=== PATIENT | male | born 1950 | race Caucasian/White ===

== ENCOUNTER → 2017-05-14 | Outpatient (CLI) | payer MEDICARE, BC ==
[~2017-05-14] MED LIST: DOBUTamine DRIP for NUC MED 500 MG in DEXTROSE/WATER 1 250ML.BAG IV ONE
--- NOTE | 2017-05-14 11:27 | P.STRESS ---
- Stress Test Note Stress Test Results/Findings: Exam Performed: dobutamine stress echo Exam Date: 05/14/17 Height: 5 ft 4 in Weight: 104.326 kg Protocol: Dobutamine Stress Echo Stage: 111 Duration of Exercise: 11.22 Resting Heart Rate: 65 Resting Blood Pressure: 129/67 Maximum Achieved Heart Rate: 130 Maximum Achieved Blood Pressure: 170/56 85% PMHR: 130 100% PMHR: 153 METS: 1.0 Technologist Comment: Stress Test Results/Findings: Baseline EKG shows normal sinus rhythm. Patient was given intravenous dobutamine for a period of 11 minutes as per protocol achieving 85% of predicted maximal heart rate without chest painat peak dobutamine infusion there was [address] segment depression noted in the inferolateral leads Baseline echo shows normal left ventricular size wall motion and systolic function Post dobutamine infusion there is normal hyperdynamic response of all the segments of myocardium Conclusions: Abnormal stress test by EKG criteria negative dobutamine echo
--- NOTE | 2017-05-14 14:09 | EST ---
Stress Test Results/Findings: Exam Performed: dobutamine stress echo Exam Date: 05/14/17 Height: 5 ft 4 in Weight: 104.326 kg Protocol: Dobutamine Stress Echo Stage: 111 Duration of Exercise: 11.22 Resting Heart Rate: 65 Resting Blood Pressure: 129/67 Maximum Achieved Heart Rate: 130 Maximum Achieved Blood Pressure: 170/56 85% PMHR: 130 100% PMHR: 153 METS: 1.0 Technologist Comment: Stress Test Results/Findings: Baseline EKG shows normal sinus rhythm. Patient was given intravenous dobutamine for a period of 11 minutes as per protocol achieving 85% of predicted maximal heart rate without chest pain at peak dobutamine infusion there was [address] segment depression noted in the inferolateral leads Baseline echo shows normal left ventricular size wall motion and systolic function Post dobutamine infusion there is normal hyperdynamic response of all the segments of myocardium Conclusions: Abnormal stress test by EKG criteria negative dobutamine echo MTDD
== END | disposition home or self-care (01) ==
LOC: RADNMMAIN 09:37
PROVIDERS: ATTEND Family Medicine
DX: R94.39 Abnormal result of other cardiovascular function study (principal); R07.9 Chest pain, unspecified
CPT/HCPCS: 93017; 93350; J1250

== ENCOUNTER → 2019-05-28 | Outpatient (CLI) | payer MEDICARE, BC ==
--- NOTE | 2019-05-28 11:06 | US ---
EXAMINATION TYPE: US duplex aorta DATE OF EXAM: 05/28/2019 COMPARISON: NONE CLINICAL HISTORY: Z13.6 SCREENING FOR CARDIOVASCULAR DISEASE. Screening for cardiovascular disease. EXAM MEASUREMENTS: Abdominal Aorta: Proximal: 2.1 x 1.8 cm Mid: 1.7 x1.5 cm Distal: .9 x 1.2 cm Bifurcation: 1.1 cm 1.1 cm Grayscale, color Doppler, spectral Doppler imaging performed of the aorta IMPRESSION: Aorta is not enlarged.
== END | disposition home or self-care (01) ==
LOC: RADUSWWP 09:16
PROVIDERS: ATTEND Family Medicine
DX: Z13.6 Encounter for screening for cardiovascular disorders (principal)
CPT/HCPCS: 93979

== ENCOUNTER 2019-05-30 15:50 | Inpatient (IN) | payer MEDICARE, BC ==
[2019-05-30] MEDS ORDERED: ASPIRIN 81 MG PO STA (16:23)
[2019-05-30] MEDS ORDERED: NITROGLYCERIN SL TABS 0.4 MG TAB SUBLINGUAL STA (16:23)
[2019-05-30] MEDS ORDERED: IPRATROPIUM-ALBUTEROL 3 ML NEB INHALATION STA (16:24)
[2019-05-30 16:44] LABS: Basophils % (A) 0 %; Eosinophils # (A) 0.1 k/uL (0-0.7); Eosinophils % (A) 1 %; HCT 47.5 % (39.0-53.0); HGB 16.2 gm/dL (13.0-17.5); Lymphocytes # (A) 1.4 k/uL (1.0-4.8); Lymphocytes % (A) 12 %; MCH 30.4 pg (25.0-35.0); MCHC 34.2 g/dL (31.0-37.0); MCV 88.9 fL (80.0-100.0); Mean Platelet Volume 9.2; Monocytes # (A) 0.4 k/uL (0-1.0); Monocytes % (A) 3 %; Neutrophils # (A) 9.7 k/uL (1.3-7.7); Neutrophils % (A) 82 %; Platelet Count 273 k/uL (150-450); RBC 5.34 m/uL (4.30-5.90); RDW 12.7 % (11.5-15.5); WBC 11.8 k/uL (3.8-10.6)
[2019-05-30 16:56] LABS: D-Dimer 0.49 mg/L FEU (<0.60); Partial Thromboplastin Time 22.1 sec (22.0-30.0); Prothrombin Time 10.3 sec (9.0-12.0)
[2019-05-30 17:10] LABS: Albumin 5.1 g/dL (3.5-5.0); Calcium 9.9 mg/dL (8.4-10.2); Magnesium 1.9 mg/dL (1.6-2.3); Total Bilirubin 1.6 mg/dL (0.2-1.3); Total Protein 9.5 g/dL (6.3-8.2)
--- NOTE | 2019-05-30 17:14 | XR ---
EXAMINATION TYPE: XR chest 2V DATE OF EXAM: 05/30/2019 COMPARISON: NONE HISTORY: Chest pain TECHNIQUE: Frontal and lateral views of the chest are obtained. FINDINGS: There is no heart failure nor confluent pneumonic infiltrate. Costophrenic angles are sara r. Bony thorax is intact. IMPRESSION: No active cardiopulmonary disease. Normal heart.
[2019-05-30 17:15] LABS: Potassium 4.7 mmol/L (3.5-5.1)
--- NOTE | 2019-05-30 19:29 | ED ---
Chest Pain HPI - General Chief Complaint: Chest Pain Stated Complaint: Allergic Reaction Source: patient Mode of arrival: wheelchair Limitations: no limitations - History of Present Illness Initial Comments: Patient is a 68-year-old male who presents to the emergency department with reported shortness of breath and chest pressure. He reports that his symptoms started earlier this morning. At 8 AM he went for a walk with his . He states he did cut his walk short as he was experiencing exertional shortness of breath. He states he went home and continue to feel symptomatic. He thought he may be having ALLERGIC reaction to medication he started. He states he began taking Flomax last night. He admits to heaviness in his chest. He is also complaining of tightness in his jaw. He denies chest pain. No ripping or tearing sensation to his back. He denies oral swelling with a sensation that his airways being cut off. No hives noted. He admits to associated diaphoresis and nausea. No vomiting. He denies any abdominal pain or changes in bowel or bladder habits. He does report to muscle cramping in his right lower extremity. Denies any lower extremity weakness. No unilateral numbness or weakness, syncope, presyncope. He denies a history of DVTs or PEs. No lower extremity edema, recent travel or history of blood clotting disorders. He has never had a cardiac cath. Last stress test was performed in 2016. There are no other alleviating, precipitating or modifying factors - Related Data Home Medications Medication Instructions Recorded Confirmed Aspirin [Howell Aspirin EC] 81 mg PO DAILY 05/30/19 05/30/19 Losartan/Hydrochlorothiazide 1 tab PO HS 05/30/19 05/30/19 [Hyzaar 100-25 Tablet] Montelukast [Singulair] 10 mg PO HS 05/30/19 05/30/19 Multivitamin/Iron/Folic Acid 1 tab PO DAILY 05/30/19 05/30/19 [Centrum Complete Multivit Tab] Omeprazole [PriLOSEC] 20 mg PO DAILY 05/30/19 05/30/19 Simvastatin [Zocor] 40 mg PO HS 05/30/19 05/30/19 Tamsulosin [Flomax] 0.4 mg PO DAILY 05/30/19 05/30/19 Allergies Allergy/AdvReac Type Severity Reaction Status Date / Time KAYE Inhibitors Allergy Rash/Hives Verified 05/30/19 20:13 amoxicillin [From Augmentin] Allergy Rash/Hives Verified 05/30/19 20:13 clavulanic acid Allergy Rash/Hives Verified 05/30/19 20:13 [From Augmentin] Review of Systems ROS Statement: Those systems with pertinent positive or pertinent negative responses have been documented in the HPI. ROS Other: All systems not noted in ROS Statement are negative. EKG Findings - EKG Comments: EKG Findings:: EKG demonstrates a sinus rhythm with a ventricular rate of 85. ME interval to 2. QRS 164. QTC of 521. There is a left bundle branch block present. There is no EKG available for comparison. It does not appear to meet sgarbossa criteria. Past Medical History Past Medical History: COPD, Hyperlipidemia, Hypertension, Prostate Disorder Past Surgical History: No Surgical Hx Reported Past Psychological History: No Psychological Hx Reported Smoking Status: Never smoker Past Alcohol Use History: None Reported, Rare Past Drug Use History: None Reported - Past Family History Father Family Medical History: CVA/TIA, Myocardial Infarction ([place]) Mother Family Medical History: CVA/TIA, Myocardial Infarction ([place]) Additional Family Medical History / Comment(s): Pacer General Exam Limitations: no limitations General appearance: alert, in no apparent distress Head exam: Present: atraumatic, normocephalic, normal inspection Eye exam: Present: normal appearance, PERRL, EOMI. Absent: scleral icterus, conjunctival injection, periorbital swelling ENT exam: Present: normal exam, mucous membranes moist Neck exam: Present: normal inspection. Absent: tenderness, meningismus, lymphadenopathy Respiratory exam: Present: normal lung sounds bilaterally. Absent: respiratory distress, wheezes, rales, rhonchi, stridor Cardiovascular Exam: Present: regular rate, normal rhythm, normal heart sounds. Absent: systolic murmur, diastolic murmur, rubs, gallop, clicks GI/Abdominal exam: Present: soft, normal bowel sounds. Absent: distended, tenderness, guarding, rebound, rigid Extremities exam: Present: normal inspection, full ROM, normal capillary refill. Absent: tenderness, pedal edema, joint swelling, calf tenderness Back exam: Present: normal inspection Neurological exam: Present: alert, oriented X3, CN II-XII intact Psychiatric exam: Present: normal affect, normal mood Skin exam: Present: warm, dry, intact, normal color. Absent: rash Course Vital Signs 05/30/19 05/30/19 05/30/19 15:53 16:30 17:03 Temperature 97 F L Pulse Rate 88 80 82 Pulse Rate [ Pulse Oximetery ] Respiratory 16 16 15 Rate Blood Pressure 162/83 160/88 113/74 Blood Pressure [Right Arm] O2 Sat by Pulse 99 97 96 Oximetry 05/30/19 05/30/19 05/30/19 17:21 17:30 17:33 Temperature Pulse Rate 75 80 75 Pulse Rate [ Pulse Oximetery ] Respiratory 17 Rate Blood Pressure 113/74 Blood Pressure [Right Arm] O2 Sat by Pulse 97 Oximetry 05/30/19 05/30/19 05/30/19 18:00 18:30 20:00 Temperature 97.5 F L Pulse Rate 81 86 Pulse Rate [ 68 Pulse Oximetery ] Respiratory 15 16 18 Rate Blood Pressure 123/76 121/73 Blood Pressure 158/71 [Right Arm] O2 Sat by Pulse 94 L 97 Oximetry 05/30/19 20:08 Temperature 98.1 F Pulse Rate 80 Pulse Rate [ Pulse Oximetery ] Respiratory 18 Rate Blood Pressure 123/77 Blood Pressure [Right Arm] O2 Sat by Pulse 97 Oximetry Chest Pain MDM - MDM The patient is probably placed in trauma bay 1. He is hooked up to continuous pulse ox and cardiac monitoring. Peripheral IV is established. A 12-lead EKG is performed which demonstrates a left bundle branch block. There are no Sgarbossa criteria. The patient is given 324 mg of chewable aspirin. He is also given a nitroglycerin tablet. Laboratory studies were conducted. The patient has a chest x-ray performed. I did send the EKG to Dr. Sifuentes as I am concerned with the new bundle branch block. The patient was reevaluated and states that his pain is much improved. He did remain in hemodynamically stable condition. Patient's first troponin is negative. I did discuss the diagnosis, differential and treatment options with the patient. I did recommend admission to the hospital in order to continue to trend the patient's troponins. The patient did agree to this. I did call discuss case with Dr. Reggie singh and he did accept admission of the patient. I will place cardiogenic consult. We'll continue trend the patient's troponins and Saw telemetry monitoring. Review the patient's records reveal that he had an abnormal stress test in 2017. The patient remained in stable condition was transported to the floor Disposition Clinical Impression: Chest pain, Acute respiratory insufficiency, Pre-syncope Disposition: ADMITTED IP TO THIS HOSP Condition: Stable Is patient prescribed a controlled substance at d/c from ED?: No Decision to Admit Reason: Admit from EC Decision Date: 05/30/19 Decision Time: 19:28
[2019-05-30] MEDS ORDERED: NALOXONE 0.4 MG/ML 1 ML VIAL IV PRN (19:32)
[2019-05-30] MEDS: LOSARTAN-HCTZ 50-12.5 MG 1 EACH TAB PO SCH (20:57)
[2019-05-30] MEDS: ATORVASTATIN 20 MG TAB PO SCH (20:57)
[2019-05-30] MEDS: ENOXAPARIN 40 MG/0.4 ML SYRINGE SQ SCH (20:58)
[2019-05-30] MEDS: MONTELUKAST 10 MG TAB PO SCH (20:58)
[2019-05-30] MEDS: SYMBICORT 80-4.5 MCG INHALER INHALATION SCH (23:27)
--- NOTE | 2019-05-30 23:51 | P.HPIM ---
History of Present Illness H&P Date: 05/30/19 Chief Complaint: Chest pain 68-year-old male with history of hyperlipidemia and hypertension Patient presented to the hospital due to sudden onset chest pain reported chest tightness rated as 5 out of 10 in severity around his chest radiating to the left jaw started all of a sudden while resting was associated with some dizziness and difficulty in breathing. More like heaviness on his chest was not precipitated by any activity or emotional stress he felt clammy and sweaty and nauseated no vomiting pain was off-and-on lasting 2-3 minutes each time every 1 hour having a new episode even while resting doing nothing. He had stress test done back in 2017 never had a heart cath before. No history of cardiac problems. Patient is able to do yard work and walks long distances with no limitations at his baseline. Currently feels comfortable denies any pain. He denies any recent traveling recent hospital stay or any recent surgeries. He denies any changes in his medications. He did not take anything for this pain or discomfort. But due to recurrent episodes he decided that he would come to the hospital for evaluation In the ED vital signs were normal troponins were negative EKG showed left bundle branch block seems to be new onset this was reviewed by cardiology contracts officer with no recommendations for any immediate intervention at this point. Patient was a dmitted for observation to rule out acute coronary syndrome Review of Systems Pertinent positives as noted in HPI. All other systems were reviewed and are negative Past Medical History Past Medical History: COPD, Hyperlipidemia, Hypertension, Prostate Disorder History of Any Multi-Drug Resistant Organisms: None Reported Past Surgical History: No Surgical Hx Reported Additional Past Surgical History / Comment(s): cataract surg B/L Past Anesthesia/Blood Transfusion Reactions: No Reported Reaction Smoking Status: Former smoker - Past Family History Father Family Medical History: CVA/TIA, Myocardial Infarction ([place]) Mother Family Medical History: CVA/TIA, Myocardial Infarction ([place]) Additional Family Medical History / Comment(s): Pacer Medications and Allergies Home Medications Medication Instructions Recorded Confirmed Type Aspirin [Erin Aspirin EC] 81 mg PO DAILY 05/30/19 05/30/19 History Losartan/Hydrochlorothiazide 1 tab PO HS 05/30/19 05/30/19 History [Hyzaar 100-25 Tablet] Montelukast [Singulair] 10 mg PO HS 05/30/19 05/30/19 History Multivitamin/Iron/Folic Acid 1 tab PO DAILY 05/30/19 05/30/19 History [Centrum Complete Multivit Tab] Omeprazole [PriLOSEC] 20 mg PO DAILY 05/30/19 05/30/19 History Simvastatin [Zocor] 40 mg PO HS 05/30/19 05/30/19 History Tamsulosin [Flomax] 0.4 mg PO DAILY 05/30/19 05/30/19 History Allergies Allergy/AdvReac Type Severity Reaction Status Date / Time KAYE Inhibitors Allergy Rash/Hives Verified 05/30/19 20:13 amoxicillin [From Augmentin] Allergy Rash/Hives Verified 05/30/19 20:13 clavulanic acid Allergy Rash/Hives Verified 05/30/19 20:13 [From Augmentin] Physical Exam Vitals: Vital Signs Temp Pulse Resp BP Pulse Ox 05/30/19 20:08 98.1 F 80 18 123/77 97 05/30/19 18:30 86 16 121/73 94 L 05/30/19 18:00 81 15 123/76 05/30/19 17:33 75 05/30/19 17:30 80 17 113/74 97 05/30/19 17:21 75 05/30/19 17:03 82 15 113/74 96 05/30/19 16:30 80 16 160/88 97 05/30/19 15:53 97 F L 88 16 162/83 99 Intake and Output 05/30/19 05/30/19 05/30/19 06:59 14:59 22:59 Other: Weight 104.326 kg Constitutional: No acute distress, conversant, pleasant Eyes: Anicteric sclerae, moist conjunctiva, no lid-lag Pupils equal round reactive to light ENMT: NC/AT Oropharynx clear, no erythema, or exudates Neck: Supple, FROM, no masses, or JVD No carotid bruits No thyromegaly Lungs: Clear to auscultation Clear to percussion Normal respiratory effort, no accessory muscle use Cardiovascular: Heart regular in rate and rhythm, No murmurs, gallops, or rubs No peripheral edema Abdominal: Soft Nontender, no guarding, rebound or rigidity Abdomen moving with respiration Normoactive bowel sounds No hepatomegaly, No splenomegaly No palpable mass No abdominal wall hernia noted Skin: Normal temperature, tone, texture, turgor No induration No subcutaneous nodules No rash, lesions No ulcers Extremities: No digital cyanosis No clubbing Pedal pulses intact and symmetrical Radial pulses intact and symmetrical No calf tenderness Psychiatric: Alert and oriented to person, place and time Appropriate affect fair judgement Neuro Muscles Strength 5/5 in all 4 extremities Sensation to light touch grossly present throughout Cranial nerves II-XII grossly intact No focal sensory deficits Lymphatics: no palpable cervical or supraclavicular , or inguinal lymph nodes Results CBC & Chem 7: 05/30/19 16:16 05/30/19 16:16 Labs: Abnormal Lab Results - Last 24 Hours (Table) 05/30/19 05/30/19 Range/Units 16:16 16:16 WBC 11.8 H (3.8-10.6) k/uL Neutrophils # 9.7 H (1.3-7.7) k/uL Carbon Dioxide 19 L (22-30) mmol/L Glucose 149 H (74-99) mg/dL Total Bilirubin 1.6 H (0.2-1.3) mg/dL Total Protein 9.5 H (6.3-8.2) g/dL Albumin 5.1 H (3.5-5.0) g/dL Thrombosis Risk Factor Assmnt - Choose All That Apply Each Risk Factor Represents 2 Points: Age 61-74 years Thrombosis Risk Factor Assessment Total Risk Factor Score: 2 Thrombosis Risk Factor Assessment Level: Low Risk Assessment and Plan Assessment: 68-year-old male with history of hypertension and hyperlipidemia admitted as observation with anticipated length of stay less than 48 hours due to atypical chest pain to rule out ACS Plan: Atypical chest pain EKG showing left bundle branch block no prior EKGs to compare, cardiology notified no recommendations for immediate intervention at this time Observation overnight Cardiac monitoring Trend cardiac enzymes Symptomatic control Cardiology consult Aspirin, statin Chronic conditions Hypertension COPD Hyperlipidemia Continue home meds DVT prophylaxis heparin subcu 3 times a day Surrogate decision-maker: CODE STATUS: Full code Discussed with: Patient, ER, RN Anticipated discharge: Less than [address]: Home A total of 60 minutes was spent on the care of this complex patient more than 50% of the time was spent in counseling and care coordination.
[2019-05-31 04:17] LABS: Basophils # (A) 0.1 k/uL (0-0.2); Basophils % (A) 1 %; Eosinophils # (A) 0.4 k/uL (0-0.7); Eosinophils % (A) 4 %; HCT 44.1 % (39.0-53.0); HGB 14.7 gm/dL (13.0-17.5); Lymphocytes # (A) 2.1 k/uL (1.0-4.8); Lymphocytes % (A) 18 %; MCH 29.9 pg (25.0-35.0); MCHC 33.3 g/dL (31.0-37.0); MCV 89.8 fL (80.0-100.0); Mean Platelet Volume 8.1; Monocytes # (A) 0.6 k/uL (0-1.0); Monocytes % (A) 6 %; Neutrophils # (A) 8.2 k/uL (1.3-7.7); Neutrophils % (A) 71 %; Platelet Count 266 k/uL (150-450); RBC 4.91 m/uL (4.30-5.90); RDW 12.9 % (11.5-15.5); WBC 11.6 k/uL (3.8-10.6)
[2019-05-31 04:27] LABS: Calcium 9.5 mg/dL (8.4-10.2); Potassium 3.9 mmol/L (3.5-5.1)
[2019-05-31] MEDS ORDERED: REGADENOSON 0.4 MG/5 ML SYRINGE IV ONE (06:34)
[2019-05-31] MEDS ORDERED: DOBUTamine DRIP for NUC MED 500 MG in DEXTROSE/WATER 1 250ML.BAG IV ONE (06:34)
[2019-05-31] MEDS ORDERED: CAFFEINE CITRATE 60 MG/3 ML VIAL IV PRN ×2 (06:34→09:13)
[2019-05-31] MEDS ORDERED: AMINOPHYLLINE 500 MG/20 ML VIAL IV PRN ×2 (06:34→09:13)
[2019-05-31] MEDS: SYMBICORT 80-4.5 MCG INHALER INHALATION SCH ×2 (07:51→19:11)
--- NOTE | 2019-05-31 08:12 | CONS ---
CONSULTATION This is a 68-year-old gentleman with a known history of hypertension and hypercholesterolemia. He also developed some benign prostatic hypertrophy and saw his primary care physician, Dr. Briseno. Apparently Dr. Brasher initiated him on Flomax 0.4 mg daily, which he took about 2 doses. A third dose was yesterday morning at about 7:30 or so and he went for a walk and felt discomfort and dizziness. It all started with feeling dizzy, lightheaded as if he is going to pass out type sensation, but did not quite pass out. He felt clammy, sweaty, then also had some pressure across the chest. He came in with these symptoms to the hospital. His troponin levels are normal. EKG reveals a left bundle which is a new left bundle compared to the previous EKG from 2017. In May of 2017, he had a dobutamine echo which did not reveal any ischemia. After arrival, he is asymptomatic, resting comfortably. Denies any chest pain, shortness of breath, or palpitations. His symptoms of pressure across the chest and dizziness have resolved. He is resting comfortably without symptoms. PAST MEDICAL HISTORY: Remarkable for hypertension, hyperlipidemia, benign prostatic hypertrophy, COPD. The patient is a past smoker. He quit more than 20 years ago. He has had some previous cataract surgery. MEDICATIONS: Medications at home include: Aspirin 81 mg daily, losartan HCTZ 100/25 one tablet daily, Singulair 10 mg daily, folic acid and iron supplements, Prilosec 20 mg daily, simvastatin 40 mg daily, Flomax 0.4 mg daily. ALLERGIES: There is question of some allergy to AUGMENTIN, CLAVULANIC ACID, and also KAYE INHIBITORS. PHYSICAL EXAMINATION: On examination, blood pressure is 118/70, pulse rate 64 per minute regular. HEENT: Unremarkable. Fundus was not examined by me. Neck is supple. There is no JVD. There is a soft right carotid bruit audible. Heart exam reveals S1, S2 without any significant rub, murmur or gallop. Lungs are clear. Abdomen is soft, nontender. Lower extremities reveal palpable pulses. No edema. Central nervous system is normal. EKG revealed a sinus mechanism, left bundle branch block pattern and PACs. IMPRESSION: 1. Chest pain syndrome, seems atypical. 2. History of dizziness, which seemed to be temporarily related to usage of Flomax. 3. Hypertension. 4. Hyperlipidemia. 5. A negative dobutamine echo 2 years ago. RECOMMENDATIONS: I am recommending that we will perform a Lexiscan stress test given his presentation. I have advised that he should take Flomax at bedtime as opposed to morning. Additionally, in view of right carotid bruit, I will do a carotid Doppler and echocardiogram. Following these tests, if these are normal, he can be discharged. I discussed my thoughts in detail with the patient. Thank you very much for the consult. KAILYN / LIN: [phone] /
[2019-05-31] MEDS ORDERED: LOSARTAN-HCTZ 50-12.5 MG 1 EACH TAB PO SCH (09:00)
[2019-05-31] MEDS ORDERED: ATORVASTATIN 20 MG TAB PO SCH (09:00)
[2019-05-31] MEDS ORDERED: MONTELUKAST 10 MG TAB PO SCH (09:00)
[2019-05-31] MEDS ORDERED: SODIUM CHLORIDE 0.9% IV ONE (09:13)
[2019-05-31] MEDS ORDERED: DIPYRIDAMOLE IV ONE (09:13)
--- NOTE | 2019-05-31 11:43 | EST ---
EXERCISE STRESS AGE: 68 SEX: M HT: 5'11" WT: 240 PROTOCOL: Persantine Cardiolite Stress test HEART RATE REST: 77 BLOOD PRESSURE REST: 123/74 MAXIMUM HEART RATE ACHIEVED: 98 MAXIMUM BLOOD PRESSURE: 99/71 INDICATIONS: Chest pain. CLINICAL INFORMATION: Baseline EKG revealed normal sinus rhythm with a left bundle branch block pattern, isolated PACs and repolarization abnormalities with Persantine administration as per protocol. Heart rate changed from 77-98 beats per minute, blood pressure changed from 99/71 and slowly came back to baseline. Patient had transient light-headedness. EKG somehow was intermittent with a wide and narrow QRS, but given his left bundle, this is an inconclusive Lexiscan stress test because of EKG abnormality. The nuclear scan results which are more pertinent will be reported by the radiologist. IMPRESSION: 1. Inconclusive Lexiscan stress test because of EKG abnormality on resting EKG. 2. Nuclear scan results will be reported by the radiologist. MMCODY / LIN: [phone] /
[2019-05-31] MEDS: FLUTICASONE 50MCG/SPRAY NASAL 16GM EA NOSTRIL SCH (11:53)
[2019-05-31] MEDS: ENOXAPARIN 40 MG/0.4 ML SYRINGE SQ SCH (11:53)
[2019-05-31] MEDS: ASPIRIN 81 MG PO SCH (11:53)
[2019-05-31] MEDS: PANTOPRAZOLE 40 MG TABLET PO SCH (11:53)
--- NOTE | 2019-05-31 13:23 | US ---
EXAMINATION TYPE: US carotid duplex BILAT DATE OF EXAM: 05/31/2019 COMPARISON: NONE CLINICAL HISTORY: Chest Pain. dizzy, no h/o stroke EXAM MEASUREMENTS: RIGHT: Peak Systolic Velocity (PSV) cm/sec ----- Right CCA: 87.2 ----- Right ICA: 89.4 ----- Right ECA: 110.6 ICA/CCA ratio: 1.0 RIGHT: End Diastole cm/sec ----- Right CCA: 20.1 ----- Right ICA: 33.3 ----- Right ECA: 7.3 LEFT: Peak Systolic Velocity (PSV) cm/sec ----- Left CCA: 146.4 ----- Left ICA: 116.9 ----- Left ECA: 152.3 ICA/CCA ratio: 0.8 LEFT: End Diastole cm/sec ----- Left CCA: 49.5 ----- Left ICA: 39.2 ----- Left ECA: 15.0 VERTEBRALS (direction of flow): Right Vertebral: Antegrade Left Vertebral: Antegrade Rhythm: Normal IMPRESSION: Mild homogeneous plaque seen with no stenosis Criteria for Assigning % of Stenosis / Diameter reduction (Estimation based on the indirect measurements of the internal carotid artery velocities (ICA PSV). 1. Normal (no stenosis)=ICA PSV < 125 cm/s: ratio < 2.0: ICA EDV<40 cm/s. 2. Less than 50% stenosis=ICA PSV < 125 cm/s: ratio < 2.0: ICA EDV<40 cm/s. 3. 50 to 69% stenosis=ICA PSV of 125 to 230 cm/s: ration 2.0 ? 4.0: ICA EDV 40-100 cm/s. 4. Greater than 70% stenosis to near occlusion= ICA PSV > 230 cm/s: ratio > 4.0: ICA EDV > 100 cm/s. 5. Near occlusion= ICA PSV velocities may be low or undetectable: variable ratio and ICA EDV. 6. Total occlusion=unable to detect flow.
--- NOTE | 2019-05-31 13:50 | ECHOF ---
Referral Reason:chest pain MEASUREMENTS -------- HEIGHT: 180.3 cm WEIGHT: 104.3 kg BP: 119/71 RVIDd: 3.7 cm (< 3.3) IVSd: 1.4 cm (0.6 - 1.1) LVIDd: 3.6 cm (3.9 - 5.3) LVPWd: 1.4 cm (0.6 - 1.1) IVSs: 1.8 cm LVIDs: 2.8 cm LVPWs: 2.0 cm LAESV Index (A-L): 31.73 ml/m Ao Diam: 3.7 cm (2.0 - 3.7) AV Cusp: 2.0 cm (1.5 - 2.6) MV E Brennon: 0.49 m/s MV DecT: 295 ms MV A Brennon: 0.68 m/s MV E/A Ratio: 0.72 RAP: 5.00 mmHg RVSP: 29.86 mmHg FINDINGS -------- LBBB This was a technically difficult study with suboptimal views. The left ventricular size is normal. There is moderate concentric left ventricular hypertrophy. O verall left ventricular systolic function is normal with, an EF between 55 - 60 %. There is paradox ical/dysynergic septal motion consistent with left bundle branch block. The right ventricle is mildly enlarged. Left atrium is mildly dilated by volume. The right atrial size is normal. Lumason used Interatrial and interventricular septum intact. The aortic valve is trileaflet and appears structurally normal. There is no evidence of aortic regu rgitation. There is no evidence of aortic stenosis. Mild mitral regurgitation is present. Mild tricuspid regurgitation present. There is no evidence of pulmonary hypertension. The right v entricular systolic pressure, as measured by Doppler, is 29.86mmHg. There is no pulmonic regurgitation present. The aortic root size is normal. IVC not well visualized There is no pericardial effusion. CONCLUSIONS -------- 1. LBBB 2. This was a technically difficult study with suboptimal views. 3. The left ventricular size is normal. 4. Overall left ventricular systolic function is normal with, an EF between 55 - 60 %. 5. There is paradoxical/dysynergic septal motion consistent with left bundle branch block. 6. The right ventricle is mildly enlarged. 7. Left atrium is mildly dilated by volume. 8. The right atrial size is normal. 9. Lumason used 10. Interatrial and interventricular septum intact. 11. The aortic valve is trileaflet and appears structurally normal. 12. There is no evidence of aortic regurgitation. 13. There is no evidence of aortic stenosis. 14. Mild mitral regurgitation is present. 15. Mild tricuspid regurgitation present. 16. There is no evidence of pulmonary hypertension. 17. The right ventricular systolic pressure, as measured by Doppler, is 29.86mmHg. 18. There is no pulmonic regurgitation present. 19. The aortic root size is normal. 20. IVC not well visualized 21. There is no pericardial effusion. SPA CONCIERGE: Mirna Hinton RDCS
--- NOTE | 2019-05-31 16:40 | NM ---
EXAMINATION TYPE: NM stress persantine cardiolite DATE OF EXAM: 05/31/2019 COMPARISON: NONE HISTORY: 68-year-old male with chest pain TECHNIQUE: After the intravenous administration of 9.7 mCi Tc 99m Sestamibi - Cardiolite resting SPE CT images acquired 45 minutes post injection. The patient received 59.5 mg Persantine, 25.5 mCi Tc 99m Sestamibi - Stress images obtained 30 minute s post injection FINDINGS: Review of stress and rest SPECT images demonstrates a moderate-sized area of stress-induced reversibi lity along the anteroseptal wall. Gated analysis shows corresponding hypokinesis along the anterosept al wall. Estimated left ventricular ejection fraction of 58 %. TID is calculated at 1.28, abnormally elevated. IMPRESSION: 1. Findings suggest a moderate sized area of inducible ischemia along the anteroseptal wall. 2. Additionally, TID is elevated at 1.28. This can be seen in the setting of global/multivessel, vianey nced ischemia.
--- NOTE | 2019-05-31 18:49 | P.PN ---
Subjective Progress Note Date: 05/31/19 Principal diagnosis: chest pain Patient is a 68-year-old male with a past medical history of hypertension, dyslipidemia, and COPD who presented to the hospital for compla ints of chest pain. In the ER he underwent an extensive evaluation. On arrival his son be slightly hypertensive with blood pressure 162/83. Initial laboratory analysis showed slightly elevated white blood cell count 11.8, carbon dioxide 19, and total bilirubin of 1.6. Initial troponin was negative. EKG did not reveal any signs of acute ischemia. He was given an aspirin and admitted for further monitoring. His troponin remained negative. He was seen by cardio and echo was normal. His nuclear stress test showed anteroseptal reversible ischemia. Patient seen and examined at bedside. No active chest pain, no shortness of breath, no nausea, no vomiting. Discussed with patient and positive stress test results and need to see cardiology in the morning with possible need for cardiac catheterization. Patient is agreeable to staying night and discussing prognosis cardio in the morning. Objective - Vital Signs Vital signs: Vital Signs Temp 97.8 F 05/31/19 15:33 Pulse 73 05/31/19 15:33 Resp 18 05/31/19 15:33 BP 131/73 05/31/19 15:33 Pulse Ox 96 05/31/19 15:33 Intake & Output 05/30/19 05/31/19 05/31/19 18:59 06:59 18:59 Weight 104.326 kg Other: # Voids 1 1 - Exam General: non toxic, no distress, appears at stated age Derm: warm, dry Head: atraumatic, normocephalic, symmetric Eyes: EOMI, no lid lag, anicteric sclera Mouth: no lip lesion, mucus membranes moist Cardiovascular: S1S2 reg, no murmur, positive posterior tibial pulse bilateral, Lungs: CTA bilateral, no rhonchi, no rales , no accessory muscle use Abdominal: soft, nontender to palpation, no guarding, no appreciable organomegaly Ext: no gross muscle atrophy, no edema, no contractures Neuro: CN II-XI grossly intact, no focal neuro deficits Psych: Alert, oriented, appropriate affect - Labs CBC & Chem 7: 05/31/19 04:05 05/31/19 04:05 Labs: Abnormal Lab Results - Last 24 Hours (Table) 05/31/19 05/31/19 Range/Units 04:05 04:05 WBC 11.6 H (3.8-10.6) k/uL Neutrophils # 8.2 H (1.3-7.7) k/uL BUN 23 H (9-20) mg/dL Glucose 100 H (74-99) mg/dL Assessment and Plan Assessment: Chest pain with positive stress test -Nothing by mouth from midnight -Await cardiac reevaluation for possible cardiac cath in the morning -Continue with aspirin, Lipitor -Hold off on BB history of COPD Hypertension, controlled -Continue with losartan/hydrochlorothiazide HLD - lipitor - check lipid proile in AM COPD without exacerbation -Continue with Symbicort, Singulair GERD -PPI Obesity, BMI 32.1 DVT prophylaxis: SCDs Discussed with: patient, nursing, family at bedside Anticipated discharge: 1-[address]: home A total of 35 minutes was spent on the care of this complex patient more than 50% of the time was spent in counseling and care coordination.
[2019-05-31] MEDS: MONTELUKAST 10 MG TAB PO SCH (20:27)
[2019-05-31] MEDS: ATORVASTATIN 20 MG TAB PO SCH (20:27)
[2019-05-31] MEDS: LOSARTAN-HCTZ 50-12.5 MG 1 EACH TAB PO SCH (20:31)
[2019-06-01 03:11] LABS: Cholesterol 158 mg/dL (<200); HDL Cholesterol 36 mg/dL (40-60); LDL Cholesterol,Calculated 89 mg/dL (0-99); Triglycerides 164 mg/dL (<150)
[2019-06-01] MEDS: SYMBICORT 80-4.5 MCG INHALER INHALATION SCH ×2 (07:44→19:34)
[2019-06-01 08:02] VITALS: RESP 18
[2019-06-01] MEDS ORDERED: NITROGLYCERIN SL TABS 0.4 MG TAB SUBLINGUAL PRN (08:18)
[2019-06-01] MEDS ORDERED: SODIUM CHLORIDE 0.9% 1,000 ML in EMPTY BAG 1 BAG IV ONE (08:18)
[2019-06-01] MEDS ORDERED: ASPIRIN 81 MG PO ONE (08:20)
[2019-06-01] MEDS: ASPIRIN 81 MG PO SCH (09:09)
[2019-06-01] MEDS: PANTOPRAZOLE 40 MG TABLET PO SCH (09:09)
[2019-06-01] MEDS: FLUTICASONE 50MCG/SPRAY NASAL 16GM EA NOSTRIL SCH (09:10)
[2019-06-01] MEDS: ENOXAPARIN 40 MG/0.4 ML SYRINGE SQ SCH (09:10)
--- NOTE | 2019-06-01 11:10 | P.PN ---
Subjective Pt is seen and examined sitting up in the chair in no acute distress. He denies chest pain, shortness of breath, dizziness or palpitations. Blood pressure 125/83 heart rate 96 afebrile and maintaining oxygen saturation on room air. Persantine stress test reports moderate sized area of inducible ischemia along the anteroseptal wall, elevated TID 1.25. This has been explained to the patient in detail and cardiac catheteization recommended. Echocardiogram obtained reveals preserved LV systolic function with ejection fraction 55-60%, decision acceptable motion secondary to left bundle branch block, mild mitral regurgitation and mild tricuspid regurgitation. Laboratory data reviewed, WBC 11.6, hgb 14.7, plt 266, sodium 139, potassium 3.9, creatinine 1.10. Currently maintained on losartan/HCTZ 50/12.5 mg 2 pills daily, atorvastatin 20 mg daily and aspirin 81 mg daily. GENERAL: Well-appearing, well-nourished and in no acute distress. NECK: Supple without JVD or thyromegaly. LUNGS: Breath sounds clear to auscultation bilaterally. Respiration equal and unlabored. No wheezes, rales or rhonchi. HEART: Regular rate and rhythm without murmurs, rubs or gallops. S1 and S2 heard. EXTREMITIES: Normal range of motion, no edema. No clubbing or cyanosis. Peripheral pulses intact. ASSESSMENT Chest pain, an acute coronary event has been ruled out. Abnormal persantine stress test revealing moderate reversible defect of the anteroseptal wall Dizziness, related to recent flomax Hypertension Dyslipidemia Left bundle branch block Leukocytosis PLAN Stress test results discussed in detail with the patient. Recommend proceeding with cardiac catheterization for definitive diagnosis of underlying coronary artery disease. I have discussed the risks, benefits and alternative therapies for the above-mentioned procedure and for both sedation/analgesia as well as necessary blood product administration, if indicated, as they pertain to this pa tient. The patient has indicated understanding and acceptance of the risks and procedures discussed. Questions have been answered appropriately and he is agreeable to move forward with the above stated procedure. Further recommendations to follow based upon clinical course. Nurse Practitioner note has been reviewed, I agree with a documented findings and plan of care. Patient was seen and examined. Objective - Vital Signs Vital signs: Vital Signs Temp 97.4 F L 06/01/19 08:00 Pulse 96 06/01/19 08:00 Resp 18 06/01/19 08:00 BP 125/83 06/01/19 08:00 Pulse Ox 98 06/01/19 08:00 Intake & Output 05/31/19 06/01/19 06/01/19 18:59 06:59 18:59 Other: Voiding Method Toilet Toilet # Voids 1 1 - Labs CBC & Chem 7: 05/31/19 04:05 05/31/19 04:05 Labs: Abnormal Lab Results - Last 24 Hours (Table) 05/31/19 Range/Units 04:05 Triglycerides 164 H (<150) mg/dL HDL Cholesterol 36 L (40-60) mg/dL
[2019-06-01] MEDS ORDERED: LIDOCAINE 1% INJ 10MG/ML (20 ML MDV) ONE (11:24)
[2019-06-01] MEDS ORDERED: VERAPAMIL 2.5 MG/ML 2 ML AMP ONE (11:24)
[2019-06-01] MEDS ORDERED: HEPARIN SODIUM 1,000 UN/ML (10ML VL) ONE (11:24)
[2019-06-01] MEDS ORDERED: IV FLUID CONTINUATION 250 ML IV ONE (11:29)
[2019-06-01] MEDS: MIDAZOLAM (PF) 2 MG/2 ML VIAL IV ONE ×2 (11:43→11:47)
[2019-06-01] MEDS: LIDOCAINE 1% INJ 10MG/ML (20 ML MDV) SQ ONE ×2 (11:48→11:59)
[2019-06-01] MEDS: VERAPAMIL SYRINGE (5 MG/10 ML) INTRAARTER ONE ×2 (11:51→12:27)
[2019-06-01] MEDS ORDERED: IOPAMIDOL-370 100ML BTL INJ ONE ×2 (12:17→12:25)
[2019-06-01] MEDS ORDERED: RX INFO: IV CONTRAST WAS GIVEN 1 EACH MISC MISCELLANE PRN (12:45)
[2019-06-01] MEDS ORDERED: SODIUM CHLORIDE 0.9% 1,000 ML IV SCH (12:45)
[2019-06-01] MEDS ORDERED: METOPROLOL TARTRATE 25 MG TAB PO SCH (13:00)
[2019-06-01 16:17] VITALS: BP 114/66; PULSE 82; TEMP 97.8
--- NOTE | 2019-06-01 16:21 | P.DS ---
Providers Date of admission: 06/01/19 07:55 Expected date of discharge: 06/01/19 Attending physician: José Manuel Choudhary MD Consults: 05/30/19 19:34 Consult Physician Urgent Consulting Provider: [facility] Consult Reason/Comments: acute chest pain, LBBB Do you want consulting provider notified?: Yes Primary care physician: Nando Brasher Hospital Course: Discharge Diagnosis: Chest pain, negative cath Dizziness, due to flomax HTN HLD COPD GERD Obesity BPH Hospital Course: Patient is a 68-year-old male with a past medical history of hypertension, dyslipidemia, and COPD who presented to the hospital for complaints of chest pain. In the ER he underwent an extensive evaluation. On arrival he was found to be slightly hypertensive with blood pressure 162/83. Initial laboratory analysis showed slightly elevated white blood cell count 11.8, carbon dioxide 19, and total bilirubin of 1.6. Initial troponin was negative. EKG did not reveal any signs of acute ischemia. He was given an aspirin and admitted for further monitoring. His troponin remained negative. He was seen by cardio and echo was normal. His nuclear stress test showed anteroseptal reversible ischemia. He underwent cardiac cath on 06/01 that did not show any signs of significant stenosis. He was determined stable for discharge home by cardio. He will follow-up with his PCP for further evaluation for non cardiac causes of chest pain. He was noted to have slightly elevated bilirubin. He did not have recurrent bouts of chest pain during admission. He was started on lipitor and and lopressor by cardiology. His dizziness was felt to be due to taking flomax in the morning and he was told to take this at night. He will fol low-up with Dr. Goss on 06/[address] Brasher in 1-2 days. Patient seen and examined at bedside.No chest pain, nausea, abdomianl pain, or shortness of breath, c/o pain a wrist where occlusive band in place. Vital signs reviewed and stable. General: non toxic, no distress, appears at stated age Derm: warm, dry Head: atraumatic, normocephalic, symmetric Eyes: EOMI, no lid lag, anicteric sclera Mouth: no lip lesion, mucus membranes moist Cardiovascular: S1S2 reg, no murmur, positive posterior tibial pulse bilateral, Lungs: CTA bilateral, no rhonchi, no rales , no accessory muscle use Abdominal: soft, nontender to palpation, no guarding, no appreciable organomegaly Ext: no gross muscle atrophy, no edema, no contractures Neuro: CN II-XI grossly intact, no focal neuro deficits Psych: Alert, oriented, appropriate affect A total of 20 minutes of time were spent preparing this complex discharge summary . Pertinent Studies: echo- normal, EF 55% Carotid doppler- mild homogenous plaque without stenosis His nuclear stress test showed anteroseptal reversible ischemia. Procedures: He underwent cardiac cath on 06/01 that did not show any signs of significant stenosis. Patient Condition at Discharge: Stable Plan - Discharge Summary New Discharge Prescriptions: New Atorvastatin [Lipitor] 80 mg PO HS #90 tab Metoprolol Tartrate [Lopressor] 25 mg PO DAILY #90 tab Fluticasone Nasal [place] [Flonase Nasal [place]] 1 spray EA NOSTRIL DAILY spr Continue Multivitamin/Iron/Folic Acid [[place] Complete Multivit Tab] 1 tab PO DAILY Aspirin [[place] Aspirin EC] 81 mg PO DAILY Montelukast [Singulair] 10 mg PO HS Losartan/Hydrochlorothiazide [Hyzaar 100-25 Tablet] 1 tab PO HS Omeprazole [PriLOSEC] 20 mg PO DAILY Changed Tamsulosin [Flomax] 0.4 mg PO HS #0 Discontinued Simvastatin [Zocor] 40 mg PO HS Discharge Medication List Aspirin [[place] Aspirin EC] 81 mg PO DAILY 05/30/19 [History] Losartan/Hydrochlorothiazide [Hyzaar 100-25 Tablet] 1 tab PO HS 05/30/19 [History] Montelukast [Singulair] 10 mg PO HS 05/30/19 [History] Multivitamin/Iron/Folic Acid [[place] Complete Multivit Tab] 1 tab PO DAILY 05/30/19 [History] Omeprazole [PriLOSEC] 20 mg PO DAILY 05/30/19 [History] Atorvastatin [Lipitor] 80 mg PO HS #90 tab 06/01/19 [Rx] Fluticasone Nasal [place] [Flonase Nasal [place]] 1 spray EA NOSTRIL DAILY spr 06/01/19 [Rx] Metoprolol Tartrate [Lopressor] 25 mg PO DAILY #90 tab 06/01/19 [Rx] Tamsulosin [Flomax] 0.4 mg PO HS #0 06/01/19 [Rx] Follow up Appointment(s)/Referral(s): Rosalio Goss MD [STAFF PHYSICIAN] - 06/04/19 9:00 am () Nando Brasher MD [Primary Care Provider] - 1-2 days Activity/Diet/Wound Care/Special Instructions: Diet: heart healthy Activity: as tolerated Pending Studies Pending Results: final cath report
[2019-06-01 16:43] LABS: Total Bilirubin 0.5 mg/dL (0.2-1.3)
[2019-06-01] MEDS ORDERED: ATORVASTATIN 80 MG TAB PO SCH (21:00)
--- NOTE | 2019-06-01 22:51 | CC ---
CARDIAC CATHETERIZATION REPORT DATE OF SERVICE: 06/01/2019 PROCEDURE: Coronary angiography. PERFORMED BY: Dr. Kirill Goss. Moderate conscious sedation time was 44 minutes. Patient was administered Versed. His oxygen saturation, hemodynamics and EKG were monitored closely. CLINICAL INFORMATION: Mr. Ryan Santillan is a 68-year-old gentleman, a patient of Dr. Nando Briseno, who came into the hospital with episode of nondescript chest tightness and pressure and had a stress test that revealed evidence of reversible defect with also some question of transient ischemic dilatation and ejection fraction that was preserved. The patient has an underlying left bundle as well. In view of this, he was advised cardiac catheterization after due discussion regarding risks, benefits, options and rationale. PROCEDURE NOTE: Under local anesthesia and strict aseptic precautions, a 6-Bahamian introducer was placed in the right radial artery. Under fluoroscopic guidance I tried to get into the ascending aorta, but I had difficulty from this radial approach because of what seemed to be a bovine arch. I therefore switched over to the right femoral approach. Using a micropuncture needle technique, a 6-Bahamian introducer was placed in the right femoral artery. Using a JR4 catheter, I could not selectively cannulate the right coronary artery. I switched over to an AR1 catheter, and with this I was able to cannulate the right coronary artery very well. Initially I tried a JL4 and then switched over to JL3.5, and with this I got quite selective coronary angiography of the left system. I did not perform an LV-gram. I did not check LV pressures. The sheath was taken out and an Angio-Seal device used to secure hemostasis. A TR band was applied to the right radial site after taking the sheath out, with good hemostasis. Saturation in the fingers of the right hand was 94%. CORONARY ANGIOGRAPHY FINDINGS: RIGHT CORONARY ARTERY: There is calcification at the ostium of the RCA, but there is no significant lesion in the ostium. I used an AR2 catheter. There is good reflux. This is a dominant vessel, has minor irregularities, distally bifurcates into PDA and PLV, both of which supply a sizable amount of myocardium. There is no significant disease in the RCA other than minor irregularities, and ostium has calcium and has somewhat of a superior takeoff and was difficult to cannulate. LEFT MAIN CORONARY ARTERY: When I cannulated the left coronary artery, there was initially some damping. This was because of the apposition of the catheter to the floor of the ostium of the left main. Once I was coaxial, I did not see any damping. There was good reflux of the dye. Left main is long, has minor irregularities, no significant disease, that bifurcates into LAD and circumflex. LEFT ANTERIOR DESCENDING CORONARY ARTERY: This vessel has moderate calcification. It gives off septal and diagonal branches, runs all the way to the apex. In the mid portion there is about a 40% narrowing at an acute bend, but this does not appear to be a critical lesion. There is a moderate 40% to 45% mid LAD disease with calcification. There are minor irregularities in other areas. The septal and diagonal branches are free of significant disease. LEFT POSTERIOR CIRCUMFLEX CORONARY ARTERY: Technically this is a nondominant vessel, very tortuous, gives off 2 branches laterally. One is an obtuse marginal. The other one continues as a distal circumflex with secondary branches. There are minor irregularities of anywhere from 20% to 35%, but no significant lesion is noted. FINAL IMPRESSION: This patient has a right-dominant system. No significant disease in the RCA other than minor irregularities with calcification of the ostium, and it was difficult to cannulate. Left main does not have a critical or significant lesion. Ostium is somewhat at an angle as it comes off, and once I was coaxial, there was good reflux and no disease of significance was noted in the left main. LAD has about a 45% mid lesion in a calcified area. Circumflex has about 30% to 35% minor irregularities, but no significant disease is noted. RECOMMENDATIONS: Findings were discussed with the patient. I recommended aggressive management with LDL cholesterol of less than 70, aspirin and also optimal BP control. The patient will be discharged later today and I will see him in the office within the next 5-6 day. MMODL / IJN: [id number] /
== END 2019-06-01 19:35 | disposition home or self-care (01) | DRG 287 ==
LOC: EC 15:50 → 1SOBS 19:32 → OBSVTOIN 06-01 07:55 → UNDODISIN 06-01 18:24
PROVIDERS: ADMIT Internal Medicine; ATTEND Internal Medicine
PROC: B2111ZZ Fluoroscopy of Multiple Coronary Arteries using Low Osmolar Contrast (ICD-10-PCS; principal; 2019-06-01 11:15)
DX: R07.89 Other chest pain (principal); I44.7 Left bundle-branch block, unspecified; I10 Essential (primary) hypertension; J44.9 Chronic obstructive pulmonary disease, unspecified; E78.5 Hyperlipidemia, unspecified; E66.9 Obesity, unspecified; N40.0 Benign prostatic hyperplasia without lower urinary tract symptoms; D72.829 Elevated white blood cell count, unspecified; E78.00 Pure hypercholesterolemia, unspecified; K21.9 Gastro-esophageal reflux disease without esophagitis; R42 Dizziness and giddiness; T44.6X5A Adverse effect of alpha-adrenoreceptor antagonists, initial encounter; Z79.82 Long term (current) use of aspirin; Z79.899 Other long term (current) drug therapy; Z82.49 Family history of ischemic heart disease and other diseases of the circulatory system; Z87.891 Personal history of nicotine dependence; Z68.32 Body mass index [BMI] 32.0-32.9, adult; Z88.1 Allergy status to other antibiotic agents; Z88.8 Allergy status to other drugs, medicaments and biological substances
CPT/HCPCS: 36415; 71046; 78452; 80048; 80053; 80061; 82247; 83735; 83880; 84450; 84460; 84484; 85025; 85379; 85610; 85730; 93005; 93017; 93306; 93458; 93880; 94640; 99285

== ENCOUNTER → 2019-06-04 | Outpatient (CLI) | payer MEDICARE, BC ==
--- NOTE | 2019-06-04 14:19 | US ---
EXAMINATION TYPE: US prostate transrectal DATE OF EXAM: 06/04/2019 COMPARISON: NONE CLINICAL HISTORY: N13.8 OBSTRUCTIVE AND REFLUX UROPATHY. Frequent and difficult urination. Leakage. This examination was performed using the transrectal probe. EXAM MEASUREMENTS: Gland Size: 5.0 x 3.8 x 2.8 cm Volume: 27.8 Predicted PSA: 3.3 Actual PSA (if available):0.8 Left apex region mixed appearing lesion visualized, nonvascular = 0.4 x 0.5 x 0.3 cm in possible mary pheral zone. Right base region hypoechoic lesion visualized, 0.7 x 0.5 x 0.5 cm in possible peripheral zone. IMPRESSION: 1. Hypoechoic lesion adjacent to to the right peripheral zone at the prostate base. Follow-up ultraso und in 6 months is advised. Predicted PSA = volume x 0.12 ng/ml Calculated Volume = 0.5236 x L x W x H
== END | disposition home or self-care (01) ==
LOC: RADUSWWP 13:22
PROVIDERS: ATTEND Family Medicine
DX: N13.8 Other obstructive and reflux uropathy (principal); R93.49 Abnormal radiologic findings on diagnostic imaging of other urinary organs
CPT/HCPCS: 76872

== ENCOUNTER → 2020-06-01 | Outpatient (CLI) | payer MEDICARE ==
--- NOTE | 2020-06-02 08:14 | US ---
EXAMINATION TYPE: US groin RT DATE OF EXAM: 06/01/2020 COMPARISON: NONE CLINICAL HISTORY: K40.90 INGUINAL HERNIA. Lump and pain right groin for 1 week No evidence of focal fluid collection. The right inguinal region demonstrates a tiny hernia with no d efinitive bowel within it, which minimally bulges with Valsalva. IMPRESSION: Tiny bulging hernia of the right groin, which does not definitively contain any bowel lo ops.
== END | disposition home or self-care (01) ==
LOC: RADUSWWP 16:03
PROVIDERS: ATTEND Family Medicine
DX: K40.90 Unilateral inguinal hernia, without obstruction or gangrene, not specified as recurrent (principal)